=== PATIENT | male | born 1955 | race Caucasian/White ===

== ENCOUNTER → 2022-05-05 | Outpatient (REF) | payer BC, OTHER ==
[~2022-05-05] MED LIST: ACET650T61 PO; AMOX875T2 PO; ATOR40TA75 PO; BASA100I SC; HYDR-3713 PO; HYDR50TAB PO; IBUP1TAB5 PO; INSUH10VL SC; JANU100T PO; LISI40TA4 PO; METF500T13 PO
== END ==
LOC: M SFHCDERM 14:13
PROVIDERS: ATTEND Physician Assistant
DX: L82.0 Inflamed seborrheic keratosis (principal)

== ENCOUNTER → 2023-04-14 | Day surgery (SDC) | payer OTHER ==
[~2023-04-14] VITALS: Ht 167.6 cm; Wt 77.8 kg
[~2023-04-14] MED LIST changes: +AMLO10TA PO; +EZET10TA21 PO; +JARD1TAB3 PO; +LANTINJ4 SC; +LIDOCAINE 2% 100MG/5ML SDV (FOR ANES.) As Ordered ONE; +MAGN400C PO; +NS 1,000 ML IV ONE; +VITA100093 PO; +VITATAB73 PO; +VITMTA PO; +fentaNYL 100 MCG/2 ML INJECTION As Ordered ONE; +propofoL 500 MG/50 ML VIAL As Ordered ONE
[2023-04-14 09:37] VITALS: TEMP 97.3
[2023-04-14 09:51] VITALS: BP 140/59; O2SAT 96
== END | disposition home or self-care (01) ==
LOC: M OPP 07:56
PROVIDERS: ATTEND Internal Medicine Gastroenterology
DX: D50.9 Iron deficiency anemia, unspecified (principal); K64.0 First degree hemorrhoids; K57.30 Diverticulosis of large intestine without perforation or abscess without bleeding; K22.89 Other specified disease of esophagus; I10 Essential (primary) hypertension; E78.5 Hyperlipidemia, unspecified; E11.9 Type 2 diabetes mellitus without complications; Z79.4 Long term (current) use of insulin; Z79.84 Long term (current) use of oral hypoglycemic drugs; Z79.899 Other long term (current) drug therapy
CPT/HCPCS: 43239; 45378; 88305; J3010